=== PATIENT | female | born 1995 | race Two or more races ===

== ENCOUNTER 2025-02-06 19:50 | Emergency (ER) | payer OTHER ==
[~2025-02-06] VITALS: Ht 167.6 cm; Wt 59.0 kg
[2025-02-06] MEDS ORDERED: MESALAMINE1.2 GM PO (20:39)
[2025-02-06] MEDS ORDERED: KETOROLAC TROMETHAMINE 10 MG TABLET PO STA (20:52)
[2025-02-06] MEDS ORDERED: KETOROLAC TROMETHAMINE 10 MG TABLET PO ONE (21:29)
== END 2025-02-06 22:24 | disposition home or self-care (01) ==
LOC: ER 19:51
DX: S92.354A Nondisplaced fracture of fifth metatarsal bone, right foot, initial encounter for closed fracture (principal); X58.XXXA Exposure to other specified factors, initial encounter; Y93.K1 Activity, walking an animal; Y92.89 Other specified places as the place of occurrence of the external cause; Y99.9 Unspecified external cause status